=== PATIENT | male | born 1980 | race African-American/Black ===

== ENCOUNTER 2017-06-10 21:09 | Inpatient (IN) | payer OTHER ==
[2017-06-10 21:20] VITALS: BMI 28.1
--- NOTE | 2017-06-11 00:56 | PDOC ---
History of Present Illness - General Chief Complaint: Urinary Problem Stated Complaint: URINARY PROBLEM, THIGH PAIN Time Seen by Provider: 06/11/17 00:53 History Source: Patient Exam Limitations: No Limitations - History of Present Illness Initial Comments: CHIEF COMPLAINT: 36 y/o afebrile male with no significant PMH c/o left thigh pain and dark urine. HISTORY OF PRESENT ILLNESS: The patient states he started having left upper thigh pain that started about 2 weeks ago after playing basketball. He states he thinks it was just a sore muscle, as he plays basketball every day and it's been getting better on it's own. He states this week he started lifting weights , along with playing basketball every day, and today he had iced tea colored urine. He was concerned so he came in. He denies f/c, n/v/d, CP, SOB, cough, hemoptysis, CP, SOB, abd pain, redness/warmth/swelling to LEs, calf pain, recent travel, dysuria, abnormal penile discharge. He also denies steroid use. Vital signs on arrival are within normal limits. REVIEW OF SYSTEMS: GENERAL/CONSTITUTIONAL: No fever/chills. No weakness. No weight change. HEAD, EYES, EARS, NOSE AND THROAT: No change in vision. No ear pain or discharge. No sore throat. CARDIOVASCULAR: No chest pain or shortness of breath. RESPIRATORY: No cough, wheezing, or hemoptysis. GASTROINTESTINAL: No abd pain, nausea, vomiting, diarrhea. GENITOURINARY: +iced tea colored urine. No dysuria, frequency. MUSCULOSKELETAL: +left thigh pain. No calf pain. No neck or back pain. SKIN: No rash or easy bruising. NEUROLOGIC: No headache, vertigo, loss of consciousness, or loss of sensation. PHYSICAL EXAM: GENERAL: The patient is awake, alert, and fully oriented, in no acute distress. He is very well appearing, ambulatory, in good shape, in NAD or obvious discomfort. HEAD: Normal with no signs of trauma. ENT: Pupils equal, round and reactive to light, extraocular movements intact, sclera anicteric, conjunctiva clear. Neck supple. LUNGS: Clear to auscultation bilaterally. Normal excursion. No respiratory distress or use of accessory muscles. CV: RRR, S1/S2, no MRG. Cap refill < 2 sec. ABDOMEN: Soft, non-distended, non-tender even to deep palpation, no hepatomegaly or splenomegaly, no masses. EXTREMITIES: +mild reproducible pain with palpation of left upper medial thigh without obvious deformity. Normal range of motion, no edema. No erythema, edema, warmth to b/l LEs. No calf pain b/l. NEUROLOGICAL: Normal speech, normal gait. CN II-XII grossly intact. PSYCH: Normal mood, normal affect. SKIN: Warm, dry, normal turgor, no rashes or lesions noted. Past History - Past Medical History Allergies/Adverse Reactions: Allergies Allergy/AdvReac Type Severity Reaction Status Date / Time Sulfa (Sulfonamide Allergy Verified 06/11/17 04:38 Antibiotics) Home Medications: Ambulatory Orders NK [No Known Home Medication] 06/11/17 - Psycho/Social/Smoking Cessation Hx Suicidal Ideation: No Smoking History: Never smoked *Physical Exam - Vital Signs Last Vital Signs Temp Pulse Resp BP Pulse Ox 98.9 F 80 18 162/90 97 06/10/17 21:18 06/10/17 21:18 06/10/17 21:18 06/10/17 21:18 06/10/17 21:18 ED Treatment Course - LABORATORY CBC & Chemistry Diagram: 06/11/17 01:20 06/11/17 01:20 Medical Decision Making - Medical Decision Making A/P: 36 y/o male who started lifting weights this week c/o iced tea colored urine today. Will work up to r/o rhabdomyolysis. Plan is as follows: 1. Labs 2. UA AST/ALT elevated CPK - 12,000 UA 3+ blood Patient has 2 bags of IV fluids running at the same time. Will admit to hospitalist for rhabdo Spoke with patient regarding admission. Spoke with resident regarding admission. Will admit to Dr. Choudhury. *DC/Admit/Observation/Transfer Diagnosis at time of Disposition: Rhabdomyolysis Qualifiers: Rhabdomyolysis type: non-traumatic Qualified Code(s): M62.82 - Rhabdomyolysis - Discharge Dispostion Condition at time of disposition: Stable Admit: Yes
--- NOTE | 2017-06-11 01:10 | PDOC ---
*Physical Exam - Vital Signs Last Vital Signs Temp Pulse Resp BP Pulse Ox 98.9 F 80 18 162/90 97 06/10/17 21:18 06/10/17 21:18 06/10/17 21:18 06/10/17 21:18 06/10/17 21:18 ED Treatment Course - LABORATORY CBC & Chemistry Diagram: 06/11/17 06:55 06/11/17 06:55 Medical Decision Making - Medical Decision Making 06/11/17 01:10 agree with care from RICARDA Key 06/11/17 04:49 Pt found to be in Rhabdolmyolysis. Pt will be admitted for IV hydration. *DC/Admit/Observation/Transfer Diagnosis at time of Disposition: Rhabdomyolysis - Discharge Dispostion Condition at time of disposition: Stable
[2017-06-11 01:30] LABS: BASOPHIL 0.7 % (0-2.0); EOSINOPHIL 0.6 % (0-4.5); MCH 28.8 pg (25.7-33.7); MCHC 33.5 g/dl (32.0-35.9); MEAN CELL VOLUME 86.1 fl (80-96); NEUTROPHILS 62.3 % (42.8-82.8); PLATELET COUNT 193 K/MM3 (134-434); RDW 14.4 % (11.9-15.9); WHITE BLOOD COUNT 10.9 K/mm3 (4.0-10.0)
[2017-06-11 01:32] LABS: URINE APPEARANCE CLEAR; URINE BILIRUBIN NEGATIVE (NEGATIVE); URINE BLOOD 3+ (NEGATIVE); URINE COLOR YELLOW; URINE GLUCOSE (UA) NEGATIVE (NEGATIVE); URINE KETONE NEGATIVE (NEGATIVE); URINE LEUK ESTERASE NEGATIVE (NEGATIVE); URINE NITRITE NEGATIVE (NEGATIVE); URINE UROBILINOGEN NEGATIVE mg/dL (0.2-1.0)
[2017-06-11 01:55] LABS: ALBUMIN 4.5 g/dl (3.4-5.0); ANION GAP 8 (8-16); BILIRUBIN,TOTAL 0.7 mg/dL (0.2-1.0); CALCIUM 9.1 mg/dL (8.5-10.1); CO2 29 mmol/L (21-32); GLUCOSE,RANDOM 91 mg/dL (74-106); SGPT/ALT 300 U/L (12-78); TOT PROT 7.8 g/dl (6.4-8.2)
[2017-06-11 02:18] LABS: ALK PHOS 81 U/L (45-117)
[2017-06-11 02:28] LABS: SGOT/AST 888 U/L (15-37)
[2017-06-11 03:29] LABS: URINE PROTEIN 1+ (NEGATIVE)
[2017-06-11] MEDS ORDERED: SODIUM CHLORIDE 1,000 ML IV STA ×2 (03:51→04:46)
[2017-06-11 04:19] LABS: URINE BACTERIA MODERATE /hpf (NONE SEEN); URINE RBC 7 /hpf (0-3); URINE WBC 2 /hpf (3-5)
[2017-06-11] MEDS ORDERED: SODIUM CHLORIDE 1,000 ML IV SCH (06:30)
--- NOTE | 2017-06-11 06:32 | HP ---
CHIEF COMPLAINT: left thigh pain and dark urine. PCP: HISTORY OF PRESENT ILLNESS: 36 y/o AA, athletic male with no significant PMH c/o left thigh pain and dark urine. The patient states he started having left upper thigh pain that started about 2 weeks ago after playing basketball. He states he thinks it was just a sore muscle, as he plays basketball every day and it's been getting better on it 's own. He states this week he started lifting weights, along with playing basketball every day, and today he had iced tea colored urine. He denies f/c, n/v/d, CP, SOB, cough, hemoptysis, CP, SOB, abd pain, redness/warmth/swelling to LEs, calf pain, recent travel, dysuria, abnormal penile discharge. He also denies steroid use. ER course was notable for: (1) EKG : NSR (2)2 IV bolus 1000 NS (3)CMP, CPK Recent Travel:NO PAST MEDICAL HISTORY:Not significant PAST SURGICAL HISTORY:None Social History: Smoking:None Alcohol:Heavy drinker, quit last year Drugs: None Family History:un significant Allergies Sulfa (Sulfonamide Antibiotics) Allergy (Verified 06/11/17 04:38) HOME MEDICATIONS: Home Medications Medication Instructions Recorded Unobtainable [Unobtainable] 06/11/17 Current Medications Generic Name Dose Route Start Last Admin Trade Name Freq PRN Reason Stop Dose Admin Sodium Chloride 1,000 mls @ 200 mls/hr 06/11/17 12:39 06/11/17 18:00 Normal Saline - IV 200 mls/hr ASDIR [facility] Administration REVIEW OF SYSTEMS REVIEW OF SYSTEMS: GENERAL/CONSTITUTIONAL: No fever/chills. No weakness. No weight change. HEAD, EYES, EARS, NOSE AND THROAT: No change in vision. No ear pain or discharge. No sore throat. CARDIOVASCULAR: No chest pain or shortness of breath. RESPIRATORY: No cough, wheezing, or hemoptysis. GASTROINTESTINAL: No abd pain, nausea, vomiting, diarrhea. GENITOURINARY: +iced tea colored urine. No dysuria, frequency. MUSCULOSKELETAL: +left thigh pain. No calf pain. No neck or back pain. SKIN: No rash or easy bruising. NEUROLOGIC: No headache, vertigo, loss of consciousness, or loss of sensation. Vital Signs - 24 hr 06/10/17 06/11/17 06/11/17 21:18 01:05 06:31 Temperature 98.9 F 98 F Pulse Rate 80 Pulse Rate [ 74 Left] Respiratory 18 17 Rate Blood Pressure 162/90 Blood Pressure 138/77 [Left Arm] O2 Sat by Pulse 97 97 96 Oximetry (%) PHYSICAL EXAM: GENERAL: The patient is awake, alert, and fully oriented, in no acute distress. He is very well appearing, ambulatory, in good shape, in NAD or obvious discomfort. HEAD: Normal with no signs of trauma. ENT: Pupils equal, round and reactive to light, extraocular movements intact, sclera anicteric, conjunctiva clear. Neck supple. LUNGS: Clear to auscultation bilaterally. Normal excursion. No respiratory distress or use of accessory muscles. CV: RRR, S1/S2, no MRG. Cap refill < 2 sec. ABDOMEN: Soft, non-distended, non-tender even to deep palpation, no hepatomegaly or splenomegaly, no masses. EXTREMITIES: +mild reproducible pain with palpation of left upper medial thigh without obvious deformity. Normal range of motion, no edema. No erythema, edema, warmth to b/l LEs. No calf pain b/l. NEUROLOGICAL: Normal speech, normal gait. CN II-XII grossly intact. PSYCH: Normal mood, normal affect. SKIN: Warm, dry, normal turgor, no rashes or lesions noted. CBC, BMP 06/11/17 01:20 06/11/17 01:20 CBC,CMP WBC 10.9 K/mm3 (4.0-10.0) H 06/11/17 01:20 RBC 5.01 M/mm3 (4.00-5.60) 06/11/17 01:20 Hgb 14.5 GM/dL (11.7-16.9) 06/11/17 01:20 Hct 43.2 % (35.4-49) 06/11/17 01:20 MCV 86.1 fl (80-96) 06/11/17 01:20 MCH 28.8 pg (25.7-33.7) 06/11/17 01:20 MCHC 33.5 g/dl (32.0-35.9) 06/11/17 01:20 RDW 14.4 % (11.9-15.9) 06/11/17 01:20 Plt Count 193 K/MM3 (134-434) 06/11/17 01:20 MPV 9.0 fl (7.5-11.1) 06/11/17 01:20 Neutrophils % 62.3 % (42.8-82.8) 06/11/17 01:20 Lymphocytes % 29.2 % (8-40) 06/11/17 01:20 Monocytes % 7.2 % (3.8-10.2) 06/11/17 01:20 Eosinophils % 0.6 % (0-4.5) 06/11/17 01:20 Basophils % 0.7 % (0-2.0) 06/11/17 01:20 Sodium 138 mmol/L (136-145) 06/11/17 01:20 Potassium 4.2 mmol/L (3.5-5.1) 06/11/17 01:20 Chloride 101 mmol/L (98-107) 06/11/17 01:20 Carbon Dioxide 29 mmol/L (21-32) 06/11/17 01:20 Anion Gap 8 (8-16) 06/11/17 01:20 BUN 20 mg/dL (7-18) H 06/11/17 01:20 Creatinine 1.0 mg/dL (0.7-1.3) 06/11/17 01:20 Creat Clearance w eGFR > 60 (>60) 06/11/17 01:20 Random Glucose 91 mg/dL (74-106) 06/11/17 01:20 Calcium 9.1 mg/dL (8.5-10.1) 06/11/17 01:20 Total Bilirubin 0.7 mg/dL (0.2-1.0) 06/11/17 01:20 AST 888 U/L (15-37) H 06/11/17 01:20 ALT 300 U/L (12-78) H 06/11/17 01:20 Alkaline Phosphatase 81 U/L (45-117) 06/11/17 01:20 Creatine Kinase 36216 IU/L (39-308) H 06/11/17 01:20 Total Protein 7.8 g/dl (6.4-8.2) 06/11/17 01:20 Albumin 4.5 g/dl (3.4-5.0) 06/11/17 01:20 ASSESSMENT/PLAN: 36 y/o male who started lifting weights this week c/o iced tea colored urine today and mid upper thigh tenderness. he was admitted for rhabdomyolysis. # Rhabdomyolysis likely 2/2 sever exercise vs dehydration * * CBC, CMP * IV fluids: NS 150 CC/Hr * CPK 12.000 , repeat CPK * UA + 3 blood * # Transminitis * AST 888, ALT 300 * Repeat CMP * Liver US * Hep panel * GI consult #F/E/N * NS @ 150 CC/Hr * Electrolytes WNL * N regular diet # proph * DVTs : Low risk, early ambulation # Dispo * Admit to med-surge * Full code Visit type - Emergency Visit Emergency Visit: Yes ED Registration Date: 06/11/17 Care time: The patient presented to the Emergency Department on the above date and was hospitalized for further evaluation of their emergent condition. - New Patient This patient is new to me today: Yes Date on this admission: 06/25/17 - Critical Care Critical Care patient: No
--- NOTE | 2017-06-11 07:03 | PN ---
Teaching Attending Note Name of Resident: Dudley Rosa ATTENDING PHYSICIAN STATEMENT I saw and evaluated the patient. I reviewed the resident's note and discussed the case with the resident. I agree with the resident's findings and plan as documented. SUBJECTIVE: c/o urine color change after excessive exercise. OBJECTIVE: GEN: A&Ox3, NAD, afebrile HEENT: anicteric sclera, PERRLA, MMM CVS: RRR, S1, S2 ABd: Soft ,NT, ND, BS+ Ext: 2+ pulses, nl ROM, no edema Neuro: CN2-12 intact , normal sensation CBCD WBC 10.9 K/mm3 (4.0-10.0) H 06/11/17 01:20 RBC 5.01 M/mm3 (4.00-5.60) 06/11/17 01:20 Hgb 14.5 GM/dL (11.7-16.9) 06/11/17 01:20 Hct 43.2 % (35.4-49) 06/11/17 01:20 MCV 86.1 fl (80-96) 06/11/17 01:20 MCHC 33.5 g/dl (32.0-35.9) 06/11/17 01:20 RDW 14.4 % (11.9-15.9) 06/11/17 01:20 Plt Count 193 K/MM3 (134-434) 06/11/17 01:20 MPV 9.0 fl (7.5-11.1) 06/11/17 01:20 CMP Sodium 138 mmol/L (136-145) 06/11/17 01:20 Potassium 4.2 mmol/L (3.5-5.1) 06/11/17 01:20 Chloride 101 mmol/L (98-107) 06/11/17 01:20 Carbon Dioxide 29 mmol/L (21-32) 06/11/17 01:20 Anion Gap 8 (8-16) 06/11/17 01:20 BUN 20 mg/dL (7-18) H 06/11/17 01:20 Creatinine 1.0 mg/dL (0.7-1.3) 06/11/17 01:20 Creat Clearance w eGFR > 60 (>60) 06/11/17 01:20 Calcium 9.1 mg/dL (8.5-10.1) 06/11/17 01:20 Total Bilirubin 0.7 mg/dL (0.2-1.0) 06/11/17 01:20 AST 888 U/L (15-37) H 06/11/17 01:20 ALT 300 U/L (12-78) H 06/11/17 01:20 Alkaline Phosphatase 81 U/L (45-117) 06/11/17 01:20 Total Protein 7.8 g/dl (6.4-8.2) 06/11/17 01:20 Albumin 4.5 g/dl (3.4-5.0) 06/11/17 01:20 ASSESSMENT AND PLAN: Rhabdomyolysis- IVF NS 150 cc/h Repeat BMP and CK Elevated LFTs USG and hepatitis panel consider GI consult
[2017-06-11 07:15] LABS: MCHC 33.7 g/dl (32.0-35.9); MEAN CELL VOLUME 85.9 fl (80-96); MEAN PLT VOLUME 8.8 fl (7.5-11.1); PLATELET COUNT 176 K/MM3 (134-434); WHITE BLOOD COUNT 8.8 K/mm3 (4.0-10.0)
[2017-06-11 07:42] LABS: ALBUMIN 3.6 g/dl (3.4-5.0); ALK PHOS 65 U/L (45-117); ANION GAP 8 (8-16); BILIRUBIN,TOTAL 0.9 mg/dL (0.2-1.0); CALCIUM 8.1 mg/dL (8.5-10.1); CO2 27 mmol/L (21-32); CREATININE 0.9 mg/dL (0.7-1.3); GLUCOSE,RANDOM 89 mg/dL (74-106); SGPT/ALT 247 U/L (12-78); TOT PROT 6.2 g/dl (6.4-8.2)
[2017-06-11 07:48] LABS: SGOT/AST 718 U/L (15-37)
[2017-06-11 08:46] LABS: CK INDEX FOR DOBBS 1.3 % (0.0-5.0)
--- NOTE | 2017-06-11 11:18 | CON.GI ---
Consult Consult Specialty:: GI: for Dr. Serrano Referred by:: Hospitalist Service Reason for Consultation:: Elevated Transaminases - History of Present Illness Chief Complaint: "My left thigh was hurting" History of Present Illness: 36M admitted through [facility] ER for left thigh pain. 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 The pain persisted, got worse and he began noticing dark urine. He became concerned, particularly when a [employer] newsfeed popped up on his phone about rhabdomyolysis, and though that that is what could be going on. In the ER triage vitals appeared stable, he had a m,il;d leukocytosis, elevated transamniases and CPK, with 3+ blood and 7 RBC's in UA and CPK 12,187 . He was admitted for treatment of rhabdomyloysis and GI called given elevated transaminases. He denies abdominal symptomatology. He denies recent travel, change in dietary habits, tattos, IVDU, history of blood transfusions, known personal or family history of liver disease/ autoimmune disease, known exposure to viral hepatitides. He is not sexually active and denies sex with prostitutes. He does give a history of moderate to heavy alcohol consumption that was stopped in March of last year. He states having a "couple of drinks with friends" this past April. 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 No family history of liver disease / GI malignancy Review of Systems - Review of Systems Constitutional: denies: Chills, Fever, Unintentional Wgt. Loss Cardiovascular: denies: Chest Pain Respiratory: denies: SOB Gastrointestinal: reports: No Symptoms, Indigestion, Melena, Nausea, Rectal Bleeding, Vomiting, Vomiting Blood. denies: Abdominal Pain, Bloating, Constipation, Diarrhea, Dysphagia Genitourinary: reports: Other (Dark urine) Musculoskeletal: reports: Muscle Pain (Left thigh) Hematology/Lymphatic: denies: Easily Bruised Physical Exam-GI Vital Signs: Vital Signs Temperature 98.4 F 06/11/17 09:54 Pulse Rate 65 06/11/17 09:54 Respiratory Rate 20 06/11/17 09:54 Blood Pressure 127/62 06/11/17 09:54 O2 Sat by Pulse Oximetry (%) 96 06/11/17 09:54 Constitutional: Yes: Calm Eyes: No: Sclera Icterus Cardiovascular: Yes: Regular Rate and Rhythm. No: Murmur Respiratory: Yes: CTA Bilaterally Gastrointestinal Inspection: No: Hernia, Scars ...Auscultate: Yes: Normoactive Bowel Sounds ...Palpate: No: Hepatomegaly, Splenomegaly, Tenderness ...Percussion: No: Tympanitic Edema: No (No LE Edema) Neurological: Yes: Alert, Oriented Labs: CBC, BMP 06/11/17 06:55 06/11/17 06:55 Laboratory Tests 06/11/17 06/11/17 01:20 06:55 Total Bilirubin 0.7 0.9 D AST 888 H 718 H ALT 300 H 247 H Alkaline Phosphatase 81 65 Creatine Kinase 49973 H Imaging - Results Ultrasound: Report Reviewed (Mild hepatomegaly, small (3mm gall bladder polyps) , No stones/sludge) Problem List - Problems (1) Transaminitis Assessment/Plan: Suspect not from primary liver pathology and rather from rhabdomyolysis. LFT's in normalizing trend. Monitor LFTs Avoid hepatotoxic agents Check screening hepatitis serologies: Hepatitis A antibody IgM/IgG, Hepatitis B surface antigen, Hepatitis B surface antibody, hepatitis B core IgM, Hepatitis C antiobody Advised Mr. Martin to completely avoid alcohol given prior history of heavy alcohol consumption Recall as needed Code(s): R74.0 - NONSPEC ELEV OF LEVELS OF TRANSAMNS & LACTIC ACID DEHYDRGNSE (2) Polyp of gallbladder Assessment/Plan: Multiple, subcentimeter and not associated with gallstones. Not impacting current hoispitalization Would observe. Should have follow-up US in 6 months to assess stability. Can offer follow-up with Dr. Serrano in office (contact information placed in discharge summary) Code(s): K82.4 - CHOLESTEROLOSIS OF GALLBLADDER
--- NOTE | 2017-06-11 11:51 | EKG ---
Test Reason : Blood Pressure : / mmHG Vent. Rate : 065 BPM Atrial Rate : 065 BPM P-R Int : 168 ms QRS Dur : 114 ms QT Int : 426 ms P-R-T Axes : 059 059 007 degrees QTc Int : 443 ms NORMAL SINUS RHYTHM POSSIBLE LEFT ATRIAL ENLARGEMENT NONSPECIFIC T WAVE ABNORMALITY ABNORMAL ECG NO PREVIOUS ECGS AVAILABLE Confirmed by CRISTINA RICHARDSON MD ([id number]) on 06/11/2017 11:51:15 AM Referred By: Confirmed By:CRISTINA RICHARDSON MD
[2017-06-11] MEDS: SODIUM CHLORIDE 1,000 ML IV SCH ×3 (12:51→23:15)
[2017-06-12] MEDS: SODIUM CHLORIDE 1,000 ML IV SCH ×4 (05:57→22:00)
[2017-06-12 06:10] LABS: HEP B SURFACE AB Reactive (.)
[2017-06-12 09:14] LABS: BASOPHIL 0.4 % (0-2.0); EOSINOPHIL 1.8 % (0-4.5); MCH 28.9 pg (25.7-33.7); MCHC 33.7 g/dl (32.0-35.9); MEAN CELL VOLUME 85.8 fl (80-96); MEAN PLT VOLUME 9.5 fl (7.5-11.1); NEUTROPHILS 50.9 % (42.8-82.8); PLATELET COUNT 169 K/MM3 (134-434); RDW 14.3 % (11.9-15.9); WHITE BLOOD COUNT 6.3 K/mm3 (4.0-10.0)
--- NOTE | 2017-06-12 10:28 | PN ---
Progress Note (short form) - Note Progress Note: Subjective: The patient was seen and examined at the bedside, he states he is feeling good. Urine at bedside clear-yellow. Awaiting CPK level to determine Current Medications Generic Name Dose Route Start Last Admin Trade Name Amari PRN Reason Stop Dose Admin Sodium Chloride 1,000 mls @ 200 mls/hr 06/11/17 12:39 06/12/17 05:57 Normal Saline - IV 200 mls/hr ASDIR SHAHIDA Administration Objective: Vital Signs Period Temp Pulse Resp BP Sys/Gleason Pulse Ox Last 24 Hr 98.0 F-98.3 F 54-67 17-20 129-134/63-73 Physical Exam: General: NAD, A&OX3 Lungs: CTA bilaterally Heart: RRR, S1S2 Abd: Soft, non-tender, non-distended. Normoactive bowel sounds Ext: Warm, well-perfused. 2+ DP/PT bilaterally Neuro: CN 2-12 intact CBCD WBC 6.3 K/mm3 (4.0-10.0) 06/12/17 07:00 RBC 4.13 M/mm3 (4.00-5.60) 06/12/17 07:00 Hgb 11.9 GM/dL (11.7-16.9) 06/12/17 07:00 Hct 35.4 % (35.4-49) 06/12/17 07:00 MCV 85.8 fl (80-96) 06/12/17 07:00 MCHC 33.7 g/dl (32.0-35.9) 06/12/17 07:00 RDW 14.3 % (11.9-15.9) 06/12/17 07:00 Plt Count 169 K/MM3 (134-434) 06/12/17 07:00 MPV 9.5 fl (7.5-11.1) 06/12/17 07:00 CMP Sodium 141 mmol/L (136-145) 06/11/17 06:55 Potassium 4.1 mmol/L (3.5-5.1) 06/11/17 06:55 Chloride 106 mmol/L (98-107) 06/11/17 06:55 Carbon Dioxide 27 mmol/L (21-32) 06/11/17 06:55 Anion Gap 8 (8-16) 06/11/17 06:55 BUN 17 mg/dL (7-18) 06/11/17 06:55 Creatinine 0.9 mg/dL (0.7-1.3) 06/11/17 06:55 Creat Clearance w eGFR > 60 (>60) 06/11/17 06:55 Random Glucose 89 mg/dL (74-106) 06/11/17 06:55 Calcium 8.1 mg/dL (8.5-10.1) L 06/11/17 06:55 Total Bilirubin 0.9 mg/dL (0.2-1.0) D 06/11/17 06:55 AST 718 U/L (15-37) H 06/11/17 06:55 ALT 247 U/L (12-78) H 06/11/17 06:55 Alkaline Phosphatase 65 U/L (45-117) 06/11/17 06:55 Total Protein 6.2 g/dl (6.4-8.2) L D 06/11/17 06:55 Albumin 3.6 g/dl (3.4-5.0) 06/11/17 06:55 CARDIAC ENZYMES Creatine Kinase 10437 IU/L (39-308) H 06/11/17 01:20 This is a 36 year old male with no significant PMHx who presented to the ED with rhabdomyolysis. Plan: 1) MSK: Rhabdomyolysis - Continue IV fluids at current rate - F/u AM CPK level and adjust IV fluids appropriately - Continue to monitor kidney function 2) GI: Transaminitis - May be 2/2 rhabdo - F/u hepatitis panel - Continue to trend - Avoid hepatotoxic agents Polyp of gallbladder - Will need follow-up ultrasound in 6 months 3) F/E/N: - Monitor electrolytes - Regular diet 4) Prophylaxis: - OOB ambulating - SCDs bilaterally 5) Dispo: - Once condition improves CODE STATUS: FULL CODE Problem List - Problems (1) Rhabdomyolysis Code(s): M62.82 - RHABDOMYOLYSIS Qualifiers: Rhabdomyolysis type: non-traumatic Qualified Code(s): M62.82 - Rhabdomyolysis (2) Transaminitis Code(s): R74.0 - NONSPEC ELEV OF LEVELS OF TRANSAMNS & LACTIC ACID DEHYDRGNSE Visit type - Emergency Visit Emergency Visit: Yes ED Registration Date: 06/11/17 Care time: The patient presented to the Emergency Department on the above date and was hospitalized for further evaluation of their emergent condition. - New Patient This patient is new to me today: Yes Date on this admission: 06/12/17 - Critical Care Critical Care patient: No
[2017-06-12 12:04] LABS: ALBUMIN 3.6 g/dl (3.4-5.0); ANION GAP 5 (8-16); BILIRUBIN,TOTAL 0.6 mg/dL (0.2-1.0); CALCIUM 8.9 mg/dL (8.5-10.1); CO2 30 mmol/L (21-32); CREATININE 0.8 mg/dL (0.7-1.3); GLUCOSE,RANDOM 75 mg/dL (74-106); SGPT/ALT 301 U/L (12-78); TOT PROT 6.5 g/dl (6.4-8.2)
[2017-06-12 12:28] LABS: ALK PHOS 68 U/L (45-117)
[2017-06-12 12:30] LABS: SGOT/AST 711 U/L (15-37)
[2017-06-12] MEDS ORDERED: SODIUM CHLORIDE 1,000 ML IV ONE (19:45)
[2017-06-13] MEDS: SODIUM CHLORIDE 1,000 ML IV SCH (03:15)
[2017-06-13 09:19] LABS: CPK 26894 IU/L (39-308)
[2017-06-13] MEDS ORDERED: SODIUM CHLORIDE 1,000 ML IV STA (10:00)
[2017-06-13 10:03] LABS: ALBUMIN 3.2 g/dl (3.4-5.0); ANION GAP 8 (8-16); BILIRUBIN,TOTAL 0.4 mg/dL (0.2-1.0); CALCIUM 8.2 mg/dL (8.5-10.1); CO2 26 mmol/L (21-32); CREATININE 0.9 mg/dL (0.7-1.3); GLUCOSE,RANDOM 97 mg/dL (74-106); SGPT/ALT 291 U/L (12-78)
[2017-06-13 10:04] LABS: ALK PHOS 65 U/L (45-117)
[2017-06-13 10:05] LABS: SGOT/AST 596 U/L (15-37)
--- NOTE | 2017-06-13 10:05 | PN ---
Progress Note (short form) - Note Progress Note: Subjective: The patient was seen and examined at the bedside, he states he is feeling good. CPK peaked at 40,000, trending down today to 26,800 Current Medications Generic Name Dose Route Start Last Admin Trade Name Amari PRN Reason Stop Dose Admin Sodium Chloride 1,000 mls @ 200 mls/hr 06/12/17 19:45 06/13/17 03:15 Normal Saline - IV 200 mls/hr ASDIR SHAHIDA Administration Sodium Chloride 1,000 mls @ 500 mls/hr 06/13/17 10:00 Normal Saline - IV 06/13/17 11:59 ASDIR STA Objective: Vital Signs Period Temp Pulse Resp BP Sys/Gleason Pulse Ox Last 24 Hr 98 F-98.1 F 49-58 16-20 132-149/75-85 100 Physical Exam: General: NAD, A&OX3 Lungs: CTA bilaterally Heart: RRR, S1S2 Abd: Soft, non-tender, non-distended. Normoactive bowel sounds Ext: Warm, well-perfused. 2+ DP/PT bilaterally Neuro: CN 2-12 intact CBCD WBC 6.3 K/mm3 (4.0-10.0) 06/12/17 07:00 RBC 4.13 M/mm3 (4.00-5.60) 06/12/17 07:00 Hgb 11.9 GM/dL (11.7-16.9) 06/12/17 07:00 Hct 35.4 % (35.4-49) 06/12/17 07:00 MCV 85.8 fl (80-96) 06/12/17 07:00 MCHC 33.7 g/dl (32.0-35.9) 06/12/17 07:00 RDW 14.3 % (11.9-15.9) 06/12/17 07:00 Plt Count 169 K/MM3 (134-434) 06/12/17 07:00 MPV 9.5 fl (7.5-11.1) 06/12/17 07:00 CMP Sodium 141 mmol/L (136-145) 06/12/17 07:00 Potassium 3.9 mmol/L (3.5-5.1) 06/12/17 07:00 Chloride 106 mmol/L (98-107) 06/12/17 07:00 Carbon Dioxide 30 mmol/L (21-32) 06/12/17 07:00 Anion Gap 5 (8-16) L 06/12/17 07:00 BUN 7 mg/dL (7-18) D 06/12/17 07:00 Creatinine 0.8 mg/dL (0.7-1.3) 06/12/17 07:00 Creat Clearance w eGFR > 60 (>60) 06/12/17 07:00 Random Glucose 75 mg/dL (74-106) 06/12/17 07:00 Calcium 8.9 mg/dL (8.5-10.1) 06/12/17 07:00 Total Bilirubin 0.6 mg/dL (0.2-1.0) D 06/12/17 07:00 AST 711 U/L (15-37) H 06/12/17 07:00 ALT 301 U/L (12-78) H D 06/12/17 07:00 Alkaline Phosphatase 68 U/L (45-117) 06/12/17 07:00 Total Protein 6.5 g/dl (6.4-8.2) 06/12/17 07:00 Albumin 3.6 g/dl (3.4-5.0) 06/12/17 07:00 CARDIAC ENZYMES Creatine Kinase 69572 IU/L (39-308) H 06/13/17 06:00 This is a 36 year old male with no significant PMHx who presented to the ED with rhabdomyolysis. Plan: 1) MSK: Rhabdomyolysis - Will give IVF bolus - Continue IV fluids at current rate - Continue to monitor kidney function 2) GI: Transaminitis - May be 2/2 rhabdo - Hepatitis panel reviewed - Continue to trend - Avoid hepatotoxic agents Polyp of gallbladder - Will need follow-up ultrasound in 6 months 3) F/E/N: - Monitor electrolytes - Regular diet 4) Prophylaxis: - OOB ambulating - SCDs bilaterally 5) Dispo: - Once condition improves CODE STATUS: FULL CODE Problem List - Problems (1) Rhabdomyolysis Code(s): M62.82 - RHABDOMYOLYSIS Qualifiers: Rhabdomyolysis type: non-traumatic Qualified Code(s): M62.82 - Rhabdomyolysis (2) Transaminitis Code(s): R74.0 - NONSPEC ELEV OF LEVELS OF TRANSAMNS & LACTIC ACID DEHYDRGNSE Visit type - Emergency Visit Emergency Visit: Yes ED Registration Date: 06/11/17 Care time: The patient presented to the Emergency Department on the above date and was hospitalized for further evaluation of their emergent condition. - New Patient This patient is new to me today: No - Critical Care Critical Care patient: No
[2017-06-13] MEDS ORDERED: SODIUM CHLORIDE 250 ML IV STA (18:40)
[2017-06-14] MEDS: SODIUM CHLORIDE 1,000 ML IV SCH ×4 (05:52→21:21)
[2017-06-14 08:36] LABS: ALBUMIN 3.1 g/dl (3.4-5.0); ANION GAP 6 (8-16); CALCIUM 8.2 mg/dL (8.5-10.1); CO2 28 mmol/L (21-32); CREATININE 0.9 mg/dL (0.7-1.3); GLUCOSE,RANDOM 73 mg/dL (74-106); SGPT/ALT 279 U/L (12-78)
[2017-06-14 08:37] LABS: SGOT/AST 487 U/L (15-37)
[2017-06-14 09:01] LABS: ALK PHOS 60 U/L (45-117); BILIRUBIN,TOTAL 0.7 mg/dL (0.2-1.0); TOT PROT 5.6 g/dl (6.4-8.2); TROPONIN I 0.06 ng/ml (0.00-0.05)
[2017-06-14 09:52] LABS: CPK 19935 IU/L (39-308)
--- NOTE | 2017-06-14 13:05 | PN ---
Progress Note (short form) - Note Progress Note: Subjective: The patient was seen and examined at the bedside, he states he is feeling good. Troponin ordered by lab, 0.06 patient denies any chest pain EKG unchanged from admission, sinus bradycardia Current Medications Generic Name Dose Route Start Last Admin Trade Name Amari PRN Reason Stop Dose Admin Sodium Chloride 1,000 mls @ 200 mls/hr 06/12/17 19:45 06/14/17 11:09 Normal Saline - IV 200 mls/hr ASDIR SHAHIDA Administration Objective: Vital Signs Period Temp Pulse Resp BP Sys/Gleason Pulse Ox Last 24 Hr 98.1 F-98.6 F 55-61 16-20 124-142/70-79 100 Physical Exam: General: NAD, A&OX3 Lungs: CTA bilaterally Heart: RRR, S1S2 Abd: Soft, non-tender, non-distended. Normoactive bowel sounds Ext: Warm, well-perfused. 2+ DP/PT bilaterally Neuro: CN 2-12 intact CBCD WBC 6.3 K/mm3 (4.0-10.0) 06/12/17 07:00 RBC 4.13 M/mm3 (4.00-5.60) 06/12/17 07:00 Hgb 11.9 GM/dL (11.7-16.9) 06/12/17 07:00 Hct 35.4 % (35.4-49) 06/12/17 07:00 MCV 85.8 fl (80-96) 06/12/17 07:00 MCHC 33.7 g/dl (32.0-35.9) 06/12/17 07:00 RDW 14.3 % (11.9-15.9) 06/12/17 07:00 Plt Count 169 K/MM3 (134-434) 06/12/17 07:00 MPV 9.5 fl (7.5-11.1) 06/12/17 07:00 CMP Sodium 142 mmol/L (136-145) 06/14/17 06:30 Potassium 4.2 mmol/L (3.5-5.1) 06/14/17 06:30 Chloride 108 mmol/L (98-107) H 06/14/17 06:30 Carbon Dioxide 28 mmol/L (21-32) 06/14/17 06:30 Anion Gap 6 (8-16) L 06/14/17 06:30 BUN 9 mg/dL (7-18) D 06/14/17 06:30 Creatinine 0.9 mg/dL (0.7-1.3) 06/14/17 06:30 Creat Clearance w eGFR > 60 (>60) 06/14/17 06:30 Random Glucose 73 mg/dL (74-106) L D 06/14/17 06:30 Calcium 8.2 mg/dL (8.5-10.1) L 06/14/17 06:30 Total Bilirubin 0.7 mg/dL (0.2-1.0) D 06/14/17 06:30 AST 487 U/L (15-37) H 06/14/17 06:30 ALT 279 U/L (12-78) H 06/14/17 06:30 Alkaline Phosphatase 60 U/L (45-117) 06/14/17 06:30 Total Protein 5.6 g/dl (6.4-8.2) L 06/14/17 06:30 Albumin 3.1 g/dl (3.4-5.0) L 06/14/17 06:30 CARDIAC ENZYMES Creatine Kinase 24228 IU/L (39-308) H 06/14/17 06:30 Troponin I 0.06 ng/ml (0.00-0.05) H 06/14/17 06:30 Microbiology 06/11/17 01:20 Urine - Urine Clean Catch Urine Culture - Final NO GROWTH OBTAINED This is a 36 year old male with no significant PMHx who presented to the ED with rhabdomyolysis. Plan: 1) MSK: Rhabdomyolysis - Continue IV fluids at current rate - Continue to monitor kidney function 2) GI: Transaminitis - May be 2/2 rhabdo - Improving - Hepatitis panel reviewed - Avoid hepatotoxic agents Polyp of gallbladder - Will need follow-up ultrasound in 6 months 3) Cardiology: Elevated troponin - Patient denies chest pain, no evidence of ACS - Trend troponins - F/u cardiology consult 4) F/E/N: - Monitor electrolytes - Regular diet 5) Prophylaxis: - OOB ambulating - SCDs bilaterally 6) Dispo: - Once condition improves CODE STATUS: FULL CODE Problem List - Problems (1) Rhabdomyolysis Code(s): M62.82 - RHABDOMYOLYSIS Qualifiers: Rhabdomyolysis type: non-traumatic Qualified Code(s): M62.82 - Rhabdomyolysis (2) Transaminitis Code(s): R74.0 - NONSPEC ELEV OF LEVELS OF TRANSAMNS & LACTIC ACID DEHYDRGNSE Visit type - Emergency Visit Emergency Visit: Yes ED Registration Date: 06/11/17 Care time: The patient presented to the Emergency Department on the above date and was hospitalized for further evaluation of their emergent condition. - New Patient This patient is new to me today: No - Critical Care Critical Care patient: No
[2017-06-14 15:48] LABS: TROPONIN I 0.05 ng/ml (0.00-0.05)
--- NOTE | 2017-06-14 16:20 | EKG ---
Test Reason : Blood Pressure : / mmHG Vent. Rate : 051 BPM Atrial Rate : 051 BPM P-R Int : 180 ms QRS Dur : 112 ms QT Int : 416 ms P-R-T Axes : 054 064 -01 degrees QTc Int : 383 ms SINUS BRADYCARDIA NONSPECIFIC T WAVE ABNORMALITY ABNORMAL ECG WHEN COMPARED WITH ECG OF 11-JUN-2017 06:28, T WAVES ARE UPRIGHT IN V2-V4 QT HAS SHORTENED CORRELATE CLINICALLY. Confirmed by SHEIKH ALISSA, LUIS ([id number] on 06/14/2017 4:19:59 PM Referred By: Jaqueline SMITH Confirmed By:LUIS SUÁREZ MD
--- NOTE | 2017-06-15 08:58 | CON.CARD ---
Consult Consult Specialty:: cardio Referred by:: hospitalist Reason for Consultation:: troponin - History of Present Illness Chief Complaint: thigh pain History of Present Illness: 36 yo male admitted several days ago with rhabdomyolysis and unilateral thigh pain. also noted iced tea colored urine. occurred after routine basketball game as well as he had started new weight lifting regimen. LFTs elevated--seen by GI, who felt this was sec to rhabdo and they were improving. pt denies any drugs including cocaine, and denies etoh abuse. medical team is following serial CPKs and troponin was added by lab which was 0.06, hence we were called. 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 - Alcohol/Substance Use Hx Alcohol Use: No (None currently, See HPI) History of Substance Use: reports: None - Smoking History Smoking history: Never smoked - Social History Usual Living Arrangement: Alone 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 No family history of liver disease / GI malignancy Review of Systems - Review of Systems Constitutional: denies: Chills, Fever Eyes: denies: Eye Pain HENT: denies: Nasal Congestion Neck: denies: Stiffness Cardiovascular: denies: Palpitations Respiratory: denies: Orthopnea, PND Gastrointestinal: denies: Diarrhea, Rectal Bleeding Genitourinary: denies: Burning, Hematuria Musculoskeletal: reports: Muscle Pain. denies: Joint Swelling Integumentary: denies: Rash Neurological: denies: Numbness, Seizure, Syncope Endocrine: denies: Excessive Sweating Hematology/Lymphatic: denies: Excessive Bleeding Vital Signs: Vital Signs Temperature 98.1 F 06/15/17 08:42 Pulse Rate 68 06/15/17 08:42 Respiratory Rate 18 06/15/17 08:42 Blood Pressure 138/81 06/15/17 08:42 O2 Sat by Pulse Oximetry (%) 100 06/13/17 21:00 Constitutional: Yes: Well Nourished, No Distress Eyes: No: Sclera Icterus HENT: No: Nasal Congestion Neck: No: Decreased ROM Respiratory: Yes: CTA Bilaterally. No: Accessory Muscle Use Gastrointestinal: Yes: Normal Bowel Sounds. No: Distention, Hepatomegaly, Palpable Mass, Tenderness Cardiovascular: Yes: Regular Rate and Rhythm JVD: No Carotid Bruit: No PMI: Non-Displaced Heart Sounds: Yes: S1, S2. No: Gallop Murmur: No: Systolic Murmur, Diastolic Murmur Musculoskeletal: Yes: Other (No kyphosis) Extremities: No: Cool, Cyanosis Edema: No Peripheral Pulses: 2+ Left Carotid, 2+ Right Carotid, 2+ Left Doralis Pedis, 2+ Right Dorsalis Pedis Integumentary: No: Jaundice Neurological: Yes: Alert, Oriented (x3) Psychiatric: No: Agitated - Other Data Labs, Other Data: CBC, BMP 06/12/17 07:00 06/14/17 06:30 Troponin, BNP 06/14/17 06/14/17 06/14/17 06:30 14:50 21:15 Troponin I 0.06 H 0.05 0.05 Troponin, BNP 06/14/17 06/14/17 06/14/17 06:30 14:50 21:15 Troponin I 0.06 H 0.05 0.05 Laboratory Tests 06/12/17 06/12/17 06/14/17 07:00 07:00 06:30 WBC 6.3 Hgb 11.9 Plt Count 169 Sodium 142 Potassium 4.2 Carbon Dioxide 28 BUN 9 D Creatinine 0.9 Creatine Kinase 53103 H D Troponin I 0.06 H 07/30/17 07/30/17 07/31/17 14:50 21:15 05:55 WBC Hgb Plt Count Sodium Potassium Carbon Dioxide BUN Creatinine Creatine Kinase 15504 H Troponin I 0.05 0.05 Assessment/Plan ECG #1: NSR, normal axis/intervals; nonsp TWA/TWI anterior > inferior leads (no old) #2: NSR, anterior TWAs less prominent rhabdo: -CPK peaked at 40K-->trending down -etiology of rhabdo is not clear to me--i.e. not clear to me there was any unusually excessive exercise per his usual routine -check TSH and urine for drugs (cocaine) though pt denies drug use -rec reconcile home meds list if he is on anything, by contacting PMD or pharmacy if pt not aware of names--if he is taking a statin for primary prevention i would strongly recommend this is an indication to stop statin for the foreseeable future, if not permanently HTN: -sbp at times 140s here -no indication for meds at present elevated AST/LT: -per GI, sec to rhabdo -were very hi initially (to 800s)--trending down elevated troponin: -trop of 0.06 is not pathological in and of itself; it is c/w myocardial injury if the proper clinical picture is present, which it is not in this case; -the flat trend in troponins confirms on ACS here -no further w/u indicated and would not trend troponin values any longer abnormal ecg: -no priors to compare -nonspecific changes present--r/o (apical?) HCM -check echo -in absence of s/sx of acute myocardial injury, or signif risk factor burden, no indication for stress testing here Addendum: upon completing the consultation, pt informed me he saw Dr. Ovalle 7-8 yrs ago for pre-sports physical, and w/u including echo was unrevealing. i have advised dr ovalle pt is here and if echo shows any abnormality, they will follow after today. also d/w'd hospitalist (elif) who is aware of this plan
[2017-06-15 10:48] LABS: THYROID STIMULATING HORMONE 0.89 uIU/ml (0.358-3.74)
--- NOTE | 2017-06-15 16:03 | PN ---
Progress Note (short form) - Note Progress Note: Subjective: The patient was seen and examined at the bedside, he states he is feeling good. F/u ECHO Current Medications Generic Name Dose Route Start Last Admin Trade Name Amari PRN Reason Stop Dose Admin Sodium Chloride 1,000 mls @ 150 mls/hr 06/15/17 14:44 Normal Saline - IV ASDIR SHAHIDA Objective: Vital Signs Period Temp Pulse Resp BP Sys/Gleason Pulse Ox Last 24 Hr 97.3 F-98.3 F 50-68 16-20 138-148/74-90 100 Physical Exam: General: NAD, A&OX3 Lungs: CTA bilaterally Heart: RRR, S1S2 Abd: Soft, non-tender, non-distended. Normoactive bowel sounds Ext: Warm, well-perfused. 2+ DP/PT bilaterally Neuro: CN 2-12 intact CBCD WBC 6.3 K/mm3 (4.0-10.0) 06/12/17 07:00 RBC 4.13 M/mm3 (4.00-5.60) 06/12/17 07:00 Hgb 11.9 GM/dL (11.7-16.9) 06/12/17 07:00 Hct 35.4 % (35.4-49) 06/12/17 07:00 MCV 85.8 fl (80-96) 06/12/17 07:00 MCHC 33.7 g/dl (32.0-35.9) 06/12/17 07:00 RDW 14.3 % (11.9-15.9) 06/12/17 07:00 Plt Count 169 K/MM3 (134-434) 06/12/17 07:00 MPV 9.5 fl (7.5-11.1) 06/12/17 07:00 CMP Sodium 142 mmol/L (136-145) 06/14/17 06:30 Potassium 4.2 mmol/L (3.5-5.1) 06/14/17 06:30 Chloride 108 mmol/L (98-107) H 06/14/17 06:30 Carbon Dioxide 28 mmol/L (21-32) 06/14/17 06:30 Anion Gap 6 (8-16) L 06/14/17 06:30 BUN 9 mg/dL (7-18) D 06/14/17 06:30 Creatinine 0.9 mg/dL (0.7-1.3) 06/14/17 06:30 Creat Clearance w eGFR > 60 (>60) 06/14/17 06:30 Random Glucose 73 mg/dL (74-106) L D 06/14/17 06:30 Calcium 8.2 mg/dL (8.5-10.1) L 06/14/17 06:30 Total Bilirubin 0.7 mg/dL (0.2-1.0) D 06/14/17 06:30 AST 487 U/L (15-37) H 06/14/17 06:30 ALT 279 U/L (12-78) H 06/14/17 06:30 Alkaline Phosphatase 60 U/L (45-117) 06/14/17 06:30 Total Protein 5.6 g/dl (6.4-8.2) L 06/14/17 06:30 Albumin 3.1 g/dl (3.4-5.0) L 06/14/17 06:30 CARDIAC ENZYMES Creatine Kinase 56569 IU/L (39-308) H 06/15/17 05:55 Troponin I 0.05 ng/ml (0.00-0.05) 06/14/17 21:15 Microbiology 06/11/17 01:20 Urine - Urine Clean Catch Urine Culture - Final NO GROWTH OBTAINED This is a 36 year old male with no significant PMHx who presented to the ED with rhabdomyolysis. Plan: 1) MSK: Rhabdomyolysis - Improving - Continue IV fluids at current rate - Continue to monitor kidney function 2) GI: Transaminitis - May be 2/2 rhabdo - Improving - Hepatitis panel reviewed - Avoid hepatotoxic agents Polyp of gallbladder - Will need follow-up ultrasound in 6 months 3) Cardiology: Elevated troponin - EKG unchanged from previous - Trops flat 0.05 - Appreciate cardiology consult 4) F/E/N: - Monitor electrolytes - Regular diet 5) Prophylaxis: - OOB ambulating - SCDs bilaterally 6) Dispo: - Once condition improves CODE STATUS: FULL CODE Problem List - Problems (1) Rhabdomyolysis Code(s): M62.82 - RHABDOMYOLYSIS Qualifiers: Rhabdomyolysis type: non-traumatic Qualified Code(s): M62.82 - Rhabdomyolysis (2) Transaminitis Code(s): R74.0 - NONSPEC ELEV OF LEVELS OF TRANSAMNS & LACTIC ACID DEHYDRGNSE Visit type - Emergency Visit Emergency Visit: Yes ED Registration Date: 06/11/17 Care time: The patient presented to the Emergency Department on the above date and was hospitalized for further evaluation of their emergent condition. - New Patient This patient is new to me today: No - Critical Care Critical Care patient: No
[2017-06-15] MEDS: SODIUM CHLORIDE 1,000 ML IV SCH (20:00)
[2017-06-16] MEDS: SODIUM CHLORIDE 1,000 ML IV SCH ×4 (02:39→23:00)
[2017-06-16 07:54] LABS: ALBUMIN 3.1 g/dl (3.4-5.0); ANION GAP 6 (8-16); CALCIUM 8.7 mg/dL (8.5-10.1); CO2 29 mmol/L (21-32); GLUCOSE,RANDOM 77 mg/dL (74-106)
[2017-06-16 08:11] LABS: ALK PHOS 55 U/L (45-117); BILIRUBIN,TOTAL 0.5 mg/dL (0.2-1.0); CREATININE 0.8 mg/dL (0.7-1.3); SGOT/AST 209 U/L (15-37); SGPT/ALT 206 U/L (12-78); TOT PROT 5.6 g/dl (6.4-8.2)
[2017-06-16 08:17] LABS: CPK 5797 IU/L (39-308)
--- NOTE | 2017-06-16 10:18 | PN ---
Progress Note (short form) - Note Progress Note: Subjective: The patient was seen and examined at the bedside, he states he is feeling good. Current Medications Generic Name Dose Route Start Last Admin Trade Name Amari PRN Reason Stop Dose Admin Sodium Chloride 1,000 mls @ 150 mls/hr 06/15/17 14:44 06/16/17 09:10 Normal Saline - IV 150 mls/hr ASDIR SHAHIDA Administration Objective: Vital Signs Period Temp Pulse Resp BP Sys/Gleason Pulse Ox Last 24 Hr 98.1 F-99.5 F 50-55 20-20 136-148/78-90 100 Physical Exam: General: NAD, A&OX3 Lungs: CTA bilaterally Heart: RRR, S1S2 Abd: Soft, non-tender, non-distended. Normoactive bowel sounds Ext: Warm, well-perfused. 2+ DP/PT bilaterally Neuro: CN 2-12 intact CBCD WBC 6.3 K/mm3 (4.0-10.0) 06/12/17 07:00 RBC 4.13 M/mm3 (4.00-5.60) 06/12/17 07:00 Hgb 11.9 GM/dL (11.7-16.9) 06/12/17 07:00 Hct 35.4 % (35.4-49) 06/12/17 07:00 MCV 85.8 fl (80-96) 06/12/17 07:00 MCHC 33.7 g/dl (32.0-35.9) 06/12/17 07:00 RDW 14.3 % (11.9-15.9) 06/12/17 07:00 Plt Count 169 K/MM3 (134-434) 06/12/17 07:00 MPV 9.5 fl (7.5-11.1) 06/12/17 07:00 CMP Sodium 143 mmol/L (136-145) 06/16/17 06:10 Potassium 3.8 mmol/L (3.5-5.1) 06/16/17 06:10 Chloride 108 mmol/L (98-107) H 06/16/17 06:10 Carbon Dioxide 29 mmol/L (21-32) 06/16/17 06:10 Anion Gap 6 (8-16) L 06/16/17 06:10 BUN 9 mg/dL (7-18) 06/16/17 06:10 Creatinine 0.8 mg/dL (0.7-1.3) 06/16/17 06:10 Creat Clearance w eGFR > 60 (>60) 06/16/17 06:10 Random Glucose 77 mg/dL (74-106) 06/16/17 06:10 Calcium 8.7 mg/dL (8.5-10.1) 06/16/17 06:10 Total Bilirubin 0.5 mg/dL (0.2-1.0) D 06/16/17 06:10 AST 209 U/L (15-37) H D 06/16/17 06:10 ALT 206 U/L (12-78) H D 06/16/17 06:10 Alkaline Phosphatase 55 U/L (45-117) 06/16/17 06:10 Total Protein 5.6 g/dl (6.4-8.2) L 06/16/17 06:10 Albumin 3.1 g/dl (3.4-5.0) L 06/16/17 06:10 CARDIAC ENZYMES Creatine Kinase 5797 IU/L (39-308) H 06/16/17 06:10 Troponin I 0.05 ng/ml (0.00-0.05) 06/14/17 21:15 Laboratory Tests 06/12/17 06/12/17 06/13/17 07:00 16:45 06:00 Creatine Kinase 86222 H D 39983 H 10849 H 06/13/17 06/14/17 06/14/17 19:05 06:30 14:50 Creatine Kinase 74139 H 56300 H 57633 H 06/15/17 06/16/17 05:55 06:10 Creatine Kinase 45079 H 5797 H This is a 36 year old male with no significant PMHx who presented to the ED with rhabdomyolysis. Plan: 1) MSK: Rhabdomyolysis - Improving - Continue IV fluids at current rate - Continue to monitor kidney function 2) GI: Transaminitis - May be 2/2 rhabdo - Improving - Hepatitis panel reviewed - Avoid hepatotoxic agents Polyp of gallbladder - Will need follow-up ultrasound in 6 months 3) Cardiology: Elevated troponin - EKG unchanged from previous - Trops flat 0.05 - ECHO reviewed - Appreciate cardiology consult 4) F/E/N: - Monitor electrolytes - Regular diet 5) Prophylaxis: - OOB ambulating - SCDs bilaterally 6) Dispo: - Once condition improves CODE STATUS: FULL CODE Problem List - Problems (1) Rhabdomyolysis Code(s): M62.82 - RHABDOMYOLYSIS Qualifiers: Rhabdomyolysis type: non-traumatic Qualified Code(s): M62.82 - Rhabdomyolysis (2) Transaminitis Code(s): R74.0 - NONSPEC ELEV OF LEVELS OF TRANSAMNS & LACTIC ACID DEHYDRGNSE Visit type - Emergency Visit Emergency Visit: Yes ED Registration Date: 06/11/17 Care time: The patient presented to the Emergency Department on the above date and was hospitalized for further evaluation of their emergent condition. - New Patient This patient is new to me today: No - Critical Care Critical Care patient: No
--- NOTE | 2017-06-16 14:48 | PN ---
Progress Note, Physician Chief Complaint: Events noted Feeling better Less thigh pain History of Present Illness: Patient was seen and examined. Awake and alert. Chart was reviewed Denies chest pain, SOB or palpitations CPK down to 5797 - Current Medication List Current Medications: Active Medications Sodium Chloride (Normal Saline -) 1,000 mls @ 150 mls/hr IV ASDIR SHAHIDA Last Admin: 06/16/17 09:10 Dose: 150 mls/hr - Objective Vital Signs: Vital Signs Temperature 98.3 F 06/16/17 13:33 Pulse Rate 54 L 06/16/17 13:33 Respiratory Rate 20 06/16/17 10:00 Blood Pressure 140/77 06/16/17 13:33 O2 Sat by Pulse Oximetry (%) 100 06/15/17 20:08 HENT: Yes: Atraumatic Neck: Yes: Supple Cardiovascular: Yes: Regular Rate and Rhythm, S1, S2. No: Murmur Respiratory: Yes: CTA Bilaterally Gastrointestinal: Yes: Normal Bowel Sounds, Soft. No: Tenderness Edema: No Labs: CBC, BMP 06/12/17 07:00 06/16/17 06:10 Laboratory Results - last 24 hr 06/16/17 06:10 Sodium 143 Potassium 3.8 Chloride 108 H Carbon Dioxide 29 Anion Gap 6 L BUN 9 Creatinine 0.8 Creat Clearance w eGFR > 60 Random Glucose 77 Calcium 8.7 Total Bilirubin 0.5 D AST 209 H D ALT 206 H D Alkaline Phosphatase 55 Creatine Kinase 5797 H Creatine Kinase Index 0.0 CK-MB (CK-2) 3.294 Total Protein 5.6 L Albumin 3.1 L Problem List - Problems (1) Rhabdomyolysis Code(s): M62.82 - RHABDOMYOLYSIS Qualifiers: Rhabdomyolysis type: non-traumatic Qualified Code(s): M62.82 - Rhabdomyolysis (2) Transaminitis Code(s): R74.0 - NONSPEC ELEV OF LEVELS OF TRANSAMNS & LACTIC ACID DEHYDRGNSE (3) HTN (hypertension) Code(s): I10 - ESSENTIAL (PRIMARY) HYPERTENSION Assessment/Plan 1. Rhabdomyolisis 2. HTN PLAN: 1. Continue hydration and trend CPK. Elevation of troponin is not of significance. 2. Transthoracic echocardiography result was noted Spoke with patient and his father by bedside. Further plans are to follow Alan Pineda MD
[2017-06-17] MEDS: SODIUM CHLORIDE 1,000 ML IV SCH ×3 (05:28→21:32)
--- NOTE | 2017-06-17 17:37 | PN ---
Progress Note, Physician History of Present Illness: Myalgias resolved. - Current Medication List Current Medications: Active Medications Sodium Chloride (Normal Saline -) 1,000 mls @ 150 mls/hr IV ASDIR SHAHIDA Last Admin: 06/17/17 12:37 Dose: 150 mls/hr - Objective Vital Signs: Vital Signs Temperature 98.2 F 06/17/17 14:31 Pulse Rate 54 L 06/17/17 14:31 Respiratory Rate 20 06/17/17 09:47 Blood Pressure 153/92 06/17/17 14:31 O2 Sat by Pulse Oximetry (%) 100 06/17/17 09:00 Constitutional: Yes: No Distress, Calm Neck: Yes: Supple Cardiovascular: Yes: Regular Rate and Rhythm Respiratory: Yes: Regular, CTA Bilaterally Gastrointestinal: Yes: Normal Bowel Sounds, Soft Edema: No Labs: CBC, BMP 06/12/17 07:00 06/16/17 06:10 Problem List - Problems (1) Rhabdomyolysis Code(s): M62.82 - RHABDOMYOLYSIS Qualifiers: Rhabdomyolysis type: non-traumatic Qualified Code(s): M62.82 - Rhabdomyolysis (2) Transaminitis Code(s): R74.0 - NONSPEC ELEV OF LEVELS OF TRANSAMNS & LACTIC ACID DEHYDRGNSE Assessment/Plan 06/15/2017 Normal biventricular size and fxn without sig valve abnl 1. Rhabdomyolysis improving 2. Abnormal LFTs PLAN: 1. Continue hydration and trend CPK and LFTs which have peaked 2. D/c planning
--- NOTE | 2017-06-17 18:00 | PN ---
Physical Exam: SUBJECTIVE: Patient seen and examined. He has no complaints CPK is down trending Events: - urine clear - CPK 3418 - Afebrile OBJECTIVE: Vital Signs Period Temp Pulse Resp BP Sys/Gleason Pulse Ox Last 24 Hr 98.2 F-98.5 F 42-57 20-20 125-155/53-92 100-100 Pe Neuro: alert,awake, cn 2-12intact Pulm: CTAB CV: s1 s2 rrr no mrg Abd: s nt nd + bs Ext: Warm, no le edema Laboratory Results - last 24 hr 06/17/17 06:30 Creatine Kinase 3418 H Creatine Kinase Index 0.1 CK-MB (CK-2) 5.925 H Active Medications Generic Name Dose Route Start Last Admin Trade Name Freq PRN Reason Stop Dose Admin Sodium Chloride 1,000 mls @ 150 mls/hr 06/15/17 14:44 06/17/17 12:37 Normal Saline - IV 150 mls/hr ASDIR SHAHIDA Administration Imaging: - ECHO 06/15: Normal biventricular size and fxn without sig valve abnl Assessment: 36 year old male with no significant PMHx who presented to the ED with rhabdomyolysis. Plan: 1. Rhabdomyolysis - Improving - Decrease fluids 100cc/hr for elevated BP - Check CPK in am 2. Transaminitis - May be 2/2 rhabdo; improved - Avoid hepatotoxic agents 3. Polyp of gallbladder - Will need follow-up ultrasound in 6 months 4. Elevated troponin - EKG unchanged from previous - Trops flat 0.05 - No further cardiac interventions 5. HTN - If remains elevated start [facility] Dispo: - Pending CPK, Dc home tomorrow CODE STATUS: FULL CODE Visit type - Emergency Visit Emergency Visit: Yes ED Registration Date: 06/11/17 Care time: The patient presented to the Emergency Department on the above date and was hospitalized for further evaluation of their emergent condition. - New Patient This patient is new to me today: No - Critical Care Critical Care patient: No
[2017-06-18] MEDS: SODIUM CHLORIDE 1,000 ML IV SCH ×3 (05:50→20:50)
--- NOTE | 2017-06-18 11:57 | PN ---
Progress Note, Physician History of Present Illness: Myalgias resolved. - Current Medication List Current Medications: Active Medications Sodium Chloride (Normal Saline -) 1,000 mls @ 100 mls/hr IV ASDIR SHAHIDA Last Admin: 06/18/17 05:50 Dose: 100 mls/hr - Objective Vital Signs: Vital Signs Temperature 98.4 F 06/18/17 08:18 Pulse Rate 47 L 06/18/17 08:18 Respiratory Rate 18 06/18/17 08:18 Blood Pressure 152/90 06/18/17 08:18 O2 Sat by Pulse Oximetry (%) 100 06/18/17 08:50 Constitutional: Yes: No Distress, Calm Neck: Yes: Supple Cardiovascular: Yes: Regular Rate and Rhythm Respiratory: Yes: Regular, CTA Bilaterally Gastrointestinal: Yes: Normal Bowel Sounds, Soft Edema: No Labs: CBC, BMP 06/12/17 07:00 06/16/17 06:10 Problem List - Problems (1) Rhabdomyolysis Code(s): M62.82 - RHABDOMYOLYSIS Qualifiers: Rhabdomyolysis type: non-traumatic Qualified Code(s): M62.82 - Rhabdomyolysis (2) Transaminitis Code(s): R74.0 - NONSPEC ELEV OF LEVELS OF TRANSAMNS & LACTIC ACID DEHYDRGNSE (3) HTN (hypertension) Code(s): I10 - ESSENTIAL (PRIMARY) HYPERTENSION Qualifiers: Hypertension type: essential hypertension Qualified Code(s): I10 - Essential (primary) hypertension Assessment/Plan 06/15/2017 Normal biventricular size and fxn without sig valve abnl 1. Rhabdomyolysis improving 2. Abnormal LFTs 3. HTN suspect PLAN: 1. Continue hydration and trend CPK and LFTs which have peaked 2. D/c planning, ambulatory BP monitor as outpatient
--- NOTE | 2017-06-18 15:01 | PN ---
Physical Exam: SUBJECTIVE: Patient seen and examined. He is frustrated his CPK is not discharge ready, but he understands OBJECTIVE: Vital Signs Period Temp Pulse Resp BP Sys/Gleason Pulse Ox Last 24 Hr 97.8 F-98.4 F 47-80 18-20 130-152/69-90 100-100 Pe Neuro: alert,awake, cn 2-12intact Pulm: CTAB CV: s1 s2 rrr no mrg Abd: s nt nd + bs Ext: Warm, no le edema Laboratory Results - last 24 hr 06/18/17 06:30 Creatine Kinase 2307 H Creatine Kinase Index 0.2 CK-MB (CK-2) 6.402 H Imaging: - ECHO 06/15: Normal biventricular size and fxn without sig valve abnl Assessment: 36 year old male with no significant PMHx who presented to the ED with rhabdomyolysis. Plan: 1. Rhabdomyolysis - CPK down trending - Increase fluids 200cc/hr - Check CPK in am 2. Transaminitis - May be 2/2 rhabdo; improved - Avoid hepatotoxic agents 3. Polyp of gallbladder - Will need follow-up ultrasound in 6 months 4. Elevated troponin - EKG unchanged from previous - Trops flat 0.05 - No further cardiac interventions 5. HTN - Likely due to fluids, monitor as outpt Dispo: - Pending CPK, DC home tomorrow CODE STATUS: FULL CODE Visit type - Emergency Visit Emergency Visit: Yes ED Registration Date: 06/11/17 Care time: The patient presented to the Emergency Department on the above date and was hospitalized for further evaluation of their emergent condition. - New Patient This patient is new to me today: No - Critical Care Critical Care patient: No
[2017-06-19] MEDS: SODIUM CHLORIDE 1,000 ML IV SCH ×2 (01:37→06:27)
[2017-06-19 07:56] VITALS: BP 139/78; PULSE 47; TEMP 98.5
--- NOTE | 2017-06-19 10:08 | DS ---
Physical Exam: SUBJECTIVE: Patient seen and examined OBJECTIVE: Vital Signs Period Temp Pulse Resp BP Sys/Gleason Pulse Ox Last 24 Hr 97.6 F-98.5 F 47-53 18-20 139-150/78-90 100 PHYSICAL EXAM GENERAL: The patient is awake, alert, and fully oriented, in no acute distress. HEAD: Normal with no signs of trauma. EYES: PERRL, extraocular movements intact, sclera anicteric, conjunctiva clear. ENT: Ears normal, nares patent, oropharynx clear without exudates, moist mucous membranes. NECK: Trachea midline, full range of motion, supple. LUNGS: Breath sounds equal, clear to auscultation bilaterally, no wheezes, no crackles, no accessory muscle use. HEART: Regular rate and rhythm, S1, S2 without murmur, rub or gallop. ABDOMEN: Soft, nontender, nondistended, normoactive bowel sounds, no guarding, no rebound, no hepatosplenomegaly, no masses. EXTREMITIES: 2+ pulses, warm, well-perfused, no edema. NEUROLOGICAL: Cranial nerves II through XII grossly intact. Normal speech, gait not observed. PSYCH: Normal mood, normal affect. SKIN: Warm, dry, normal turgor, no rashes or lesions noted. LABS Laboratory Results - last 24 hr 06/19/17 05:35 Creatine Kinase 1414 H Creatine Kinase Index 0.5 CK-MB (CK-2) 7.260 H HOSPITAL COURSE: Date of Admission:06/11/17 Date of Discharge: 06/19/17 Minutes to complete discharge: 38 Discharge Summary Reason For Visit: RHABDOMYOLYSIS Current Active Problems HTN (hypertension) (Acute) Polyp of gallbladder (Acute) Rhabdomyolysis (Acute) Transaminitis (Acute) Hospital Course: Initial Hospital Course: Briefly, this 36 year old AA athletic male with no significant PMH c/o left thigh pain and dark urine. He reported having left upper thigh pain that started about 2 weeks ago after playing basketball, thinking it was a sore, it got better on its own. He started to lift weights and playing basketball every day, and on the day of admissio his urine was tea colored. He reports he does not drink water with his work outs or usually much at all. He denies steroid use , he is no longer an alcohol drinker. Imaging: - ECHO 06/15: Normal biventricular size and fxn without sig valve abnl Subsequent Hospital Course/Progress Note/Discharge Summary by a/p: Assessment: 36 year old male with no significant PMHx who presented to the ED with rhabdomyolysis. Plan: 1. Rhabdomyolysis - CPK 1414 on discharge, peaked [id number] - Home with liberal PO intake - Thursday follow up with PCP Dr. Padmini lopes for repeat CPK levels, pt aware and agrees 2. Transaminitis - May be 2/2 rhabdo; improved - Avoid hepatotoxic agents 3. Polyp of gallbladder - Will need follow-up ultrasound in 6 months 4. Elevated troponin - TSH wnl - EKG unchanged from previous - Trops flat 0.05 - d.w cardiology CK MB rise, no need for further intervention at this time - No further cardiac interventions 5. HTN - Likely due to fluids, monitor as outpt Dispo: - Home with pcp follow up thursday for cpk levels, counseled pt to drink water liberally before during and after work outs - Pt aware and agrees to above plan Condition: Stable - Instructions Diet, Activity, Other Instructions: Please return to the ED for any new, persistent, or worsening symptoms. Follow up with your PCP on Thursday for repeat CPK levels Continue to drink plenty of fluids Follow up in 6 months for ultra sound of gallbladder to evaluate polyp Avoid tylenol and any other agents toxic to your liver Referrals: Miguel Serrano MD [Staff Physician] - Padmini Lopes MD [Staff Physician] - 06/22/17 (Follow up on Thursday for repeat CPK and CMP levels Repeat US of gallbladder in 6 months re eval polyp ) Disposition: HOME - Home Medications Comprehensive Discharge Medication List: Ambulatory Orders NK [No Known Home Medication] 06/11/17 This patient is new to me today: No Emergency Visit: Yes ED Registration Date: 06/11/17 Care time: The patient presented to the Emergency Department on the above date and was hospitalized for further evaluation of their emergent condition. Critical Care patient: No - Discharge Referral Referred to [facility] No
== END 2017-06-19 12:38 | disposition home or self-care (01) | DRG 351 ==
LOC: JERFT 21:09 → UNDOADMOB 06-11 05:37 → INTOOBSV 06-11 05:37 → JERBED 06-11 05:37 → UNDOADMIN 06-11 05:59 → JERBED 06-11 05:59 → OBSVTOIN 06-11 06:50 → J6S 06-11 09:34
PROVIDERS: ADMIT Internal Medicine; ATTEND Nurse Practitioner Acute Care
DX: M62.82 Rhabdomyolysis (principal); R74.0 Nonspecific elevation of levels of transaminase and lactic acid dehydrogenase [LDH]; I10 Essential (primary) hypertension; K82.4 Cholesterolosis of gallbladder; M79.652 Pain in left thigh
CPT/HCPCS: 36415; 76700-TC; 80053; 80074; 81003; 81015; 82550; 82553; 84443; 84484; 85025; 85027; 86704; 86706; 86708; 87086; 87340; 93005; 93010; 93306-TC; 99282-25

== ENCOUNTER 2020-07-29 13:24 | Emergency (ER) | payer BC, OTHER ==
[2020-07-29 13:42] VITALS: BP 128/77; PULSE 66; TEMP 98.7; BMI 25.3
[2020-07-29] MEDS ORDERED: AMOX TR/POT CLAV 875MG/125MG TABLETS (FP) PO ONE (15:35)
[2020-07-29] MEDS ORDERED: DIPHTH,PERTUSS(ACELL),TET 0.5 ML DISP.SYRIN IM ONE ×2 (15:35→16:11)
--- NOTE | 2020-07-29 15:46 | PDOC ---
History of Present Illness - General Chief Complaint: Injury Stated Complaint: LEG LAC. Time Seen by Provider: 07/29/20 13:46 History Source: Patient Exam Limitations: No Limitations - History of Present Illness Initial Comments: 07/29/20 13:46 Patient is a 39-year-old male with no past medical history presents to the ED with bilateral leg lacerations after falling while jumping over an iron fence. He states he was playing basketball with his nephew when the ball went over the fence. He jumped over the fence to retrieve the ball and while jumping back over tripped scraping his legs on the peaks of the fence. He immediately noticed multiple lacerations to his bilateral lower legs. He is unsure of his last tetanus booster. He states he is allergic to sulfa medications. Past History - Medical History Allergies/Adverse Reactions: Allergies Allergy/AdvReac Type Severity Reaction Status Date / Time Sulfa (Sulfonamide Allergy Verified 07/29/20 13:42 Antibiotics) Home Medications: Ambulatory Orders Amoxicillin/Potassium Clav [Augmentin 875-125 Tablet] 1 each PO BID 10 Days #20 tablet 07/29/20 COPD: No - Immunization History Immunization Up to Date: No - Psycho-Social/Smoking History Smoking History: Never smoked - Substance Abuse Hx (Audit-C & DAST Scrn) How often the patient has a drink containing alcohol: Never Score: In Men: 4 or > Positive; In Women: 3 or > Positive: 0 Screen Result (Pos requires Nsg. Audit-10AR): Negative Review of Systems - Review of Systems Comments:: 07/29/20 15:57 - Review of Systems Able to Perform ROS?: Yes Constitutional: No: Fever, Chills, Loss of Appetite, Night Sweats, Weakness HEENTM: No: Eye Pain, Vision changes, Ear Pain, Throat Pain, Throat Swelling, Mouth Pain, Difficulty Swallowing Respiratory: No: Cough, Shortness of Breath, Wheezing, Sputum Production Cardiac (ROS): No: Chest Pain, Chest Tightness, Palpitations, Irregular Heart Beat, Edema ABD/GI: No: Nausea, Vomiting, Abdominal Pain, Diarrhea : No Dysuria, No Hematuria, No Frequency, No Urgency Musculoskeletal: No: Muscle Pain, Back Pain, Joint Pain, Muscle Weakness, Neck Pain Integumentary: No: Lesions, Rash; positive: Bilateral lower leg lacerations Neurological: No: Headache, Numbness, Tingling, Weakness, Speech Difficulties *Physical Exam - Vital Signs Last Vital Signs Temp Pulse Resp BP Pulse Ox 98.7 F 66 18 128/77 100 07/29/20 13:38 07/29/20 13:38 07/29/20 13:38 07/29/20 13:38 07/29/20 13:38 - Physical Exam 07/29/20 15:57 - Physical Exam General Appearance: Nourished, Appropriately Dressed, No Distress HEENT: EOMI, Normal Voice, Hearing Grossly Normal Neck: Supple, No Lymphadenopathy (R), No Lymphadenopathy (L), No Rigidity, No Decreased range of motion Respiratory/Chest: Lungs Clear, Normal Breath Sounds. No Respiratory Distress, No Accessory Muscle Use Cardiovascular: Regular Rhythm, Regular Rate, S1, S2 Musculoskeletal: Normal Inspection. No Decreased Range of Motion Extremity: Normal Capillary Refill, Normal Inspection Integumentary: Normal Color, Dry. No Rash; 5 lacerations appreciated to the b/l lower extremities. 2 of the lacerations are flap lacerations on the bilateral distal aspects of the lower legs that are both gaping. Bone visualized without any bony involvement appreciated. Full range of motion of the foot and ankle appreciated. 2 lacerations are linear in nature 1 on the proximal aspect of the left lower leg and the other on the right distal lateral aspect of the right leg over the ankle. There is a laceration to the mid lower leg on the left with a braised and contused tissue surrounding it. The center of that laceration is slightly gaping. No sign of foreign bodies on any of the lacerations. Abrasions appreciated to the bilateral proximal aspect of the lower legs. Neurologic: cytogenetic technician II-XII NML intact, Fully Oriented, Alert, Normal Mood/Affect, Normal Response Procedures - Laceration/Wound Repair Both Lower Anterior Lateral Calf Wound Length: 12.6 to 20 cm Wound Explored: clean, no foreign body present Wound's Depth, Shape: superficial, irregular, flap, contused tissue Irrigated w/ Saline: Yes Betadine Prep: Yes Anesthesia: 1% Lidocaine Amount of Anesthetic (ccs): 9 Wound Debrided: minimal Wound Repaired With: Sutures Suture Size/Type: 4:0, 3:0, nylon Number of Sutures: 29 Layer Closure: No Sterile Dressing Applied: Yes Splint Applied: No Progress: 07/29/20 15:46 5 separate wounds sutured with a total of 29 sutures. Right leg: proximal wound has 11 sutures, distal lateral wound has 3 sutures Left leg: Proximal wound has 5 sutures, middle wound has 3 sutures, distal wound has 7 sutures Medical Decision Making - Medical Decision Making 07/29/20 15:48 Assessment: Patient is a 39-year-old male with bilateral lower extremity lacerations after falling over a right iron fence. Plan: -Suture repair on 5 wounds totaling 20 9 sutures -Tetanus booster given -Augmentin p.o. first dose given in the ED, remainder sent to the patient's pharmacy -Patient given wound care instructions -Patient to return to the ED in 7 to 10 days for suture removal -He understands and agrees with this treatment plan and he is stable for discharge Discharge - Discharge Information Problems reviewed: Yes Clinical Impression/Diagnosis: Laceration of left lower leg without complication Laceration of lower leg without complication Qualifiers: Encounter type: initial encounter Laterality: right Qualified Code(s): S81.811A - Laceration without foreign body, right lower leg, initial encounter Condition: Stable Disposition: HOME - Additional Discharge Information Prescriptions: Amoxicillin/Potassium Clav [Augmentin 875-125 Tablet] 1 each PO BID 10 Days #20 tablet - Follow up/Referral - Patient Discharge Instructions Patient Printed Discharge Instructions: DI for Laceration Repair Additional Instructions: Keep the wound clean and dry for 24 hours. After 24 hours you can wash the wounds daily with warm water and soap. Allow the wounds to dry for at least 30 minutes before covering. You can keep the wounds uncovered while at home but you should cover them if away from home. Take the antibiotics as prescribed and complete the entire course. You were given a tetanus booster in the emergency department today. Return to the emergency department in 7 to 10 days to have the sutures removed. - Post Discharge Activity
[2020-07-29] MEDS ORDERED: AMOX TR/POT CLAV 875MG/125MG TABLETS (FP) ONE (16:12)
== END 2020-07-29 16:21 | disposition home or self-care (01) ==
LOC: JERFT 13:24
PROC: 0YQJXZZ Repair Left Lower Leg, External Approach (ICD-10-PCS; principal; 2020-07-29)
PROC: 0YQHXZZ Repair Right Lower Leg, External Approach (ICD-10-PCS; 2020-07-29)
PROC: 3E0234Z Introduction of Serum, Toxoid and Vaccine into Muscle, Percutaneous Approach (ICD-10-PCS; 2020-07-29)
DX: S81.811A Laceration without foreign body, right lower leg, initial encounter (principal); S81.812A Laceration without foreign body, left lower leg, initial encounter
CPT/HCPCS: 90715; 99284-25

== ENCOUNTER 2020-08-08 11:46 | Emergency (ER) | payer BC ==
[2020-08-08 11:50] VITALS: BP 130/77; PULSE 77; TEMP 98.2; BMI 25.3
--- NOTE | 2020-08-08 12:33 | PDOC ---
Suture Removal/Wound Check HPI - History of Present Illness Chief Complaint: Suture/Staple Removal(Here) Stated Complaint: STITCH REMOVAL History Source: Yes: Patient Exam Limitations: Yes: No Limitations - Onset of Previous Treatment Comment:: 08/08/20 12:32 Patient is a 45-year-old male with no past medical history here with complaints of suture removal applied 10 days ago. Has no issues of discharge from the wound, redness he has been on antibiotics for past 10 days. PMHX: Dr. Aponte PMHX: as above PSOCHX: neg ALL: sulfa GENERAL/CONSTITUTIONAL: [No fever or chills. No weakness. No weight change.] HEAD, EYES, EARS, NOSE AND THROAT: [No change in vision. No ear pain or discharge. No sore throat.] MUSCULOSKELETAL: [No joint or muscle swelling or pain. No neck or back pain.] SKIN AND BREASTS: [No rash or easy bruising.] NEUROLOGIC: [No headache, vertigo, loss of consciousness, or loss of sensation.] ENDOCRINE: [No increased thirst. No abnormal weight change.] HEMATOLOGIC/LYMPHATIC: [No anemia, easy bleeding, or history of blood clots.] ALLERGIC/IMMUNOLOGIC: [No hives or skin allergy. No latex allergy.] GENERAL: [The patient is awake, alert, and fully oriented, in no acute distress. ] HEAD: [Normal with no signs of trauma.] EYES: [Pupils equal, round and reactive to light, extraocular movements intact, sclera anicteric, conjunctiva clear.] EXTREMITIES: [Normal range of motion, no edema. No clubbing or cyanosis. No cords, erythema, or tenderness.] NEUROLOGICAL: [Cranial nerves II through XII grossly intact. Normal speech, normal gait.] SKIN: [multiple sutures on b/l lower ext, sutures intact wounds are clean no discharge, no erythema] Past History - Medical History Allergies/Adverse Reactions: Allergies Allergy/AdvReac Type Severity Reaction Status Date / Time Sulfa (Sulfonamide Allergy Verified 08/08/20 12:17 Antibiotics) Home Medications: Ambulatory Orders Amoxicillin/Potassium Clav [Augmentin 875-125 Tablet] 1 each PO BID 10 Days #20 tablet 07/29/20 COPD: No - Immunization History Immunization Up to Date: No - Psycho-Social/Smoking History Smoking History: Never smoked Have you smoked in the past 12 months: No Information on smoking cessation initiated: No - Substance Abuse Hx (Audit-C & DAST Scrn) How often the patient has a drink containing alcohol: Never Score: In Men: 4 or > Positive; In Women: 3 or > Positive: 0 Screen Result (Pos requires Nsg. Audit-10AR): Negative In the last yr the pt used illegal drug/Rx for NonMed reason: No Score: Yes response is considered Positive: 0 Screen Result (Positive result requires Nsg. DAST-10): Negative *Physical Exam - Vital Signs Last Vital Signs Temp Pulse Resp BP Pulse Ox 98.2 F 77 18 130/77 99 08/08/20 11:47 08/08/20 11:47 08/08/20 11:47 08/08/20 11:47 08/08/20 11:47 Medical Decision Making - Medical Decision Making 08/08/20 12:32 Patient is a 45-year-old male with no past medical history here with complaints of suture removal applied 10 days ago. Has no issues of discharge from the wound, redness he has been on antibiotics for past 10 days. Patient here for wound check and suture removal. Right leg distally sutures removed slight opening to the proximal edge of the wound. Wound was cleaned and Steri-Strips applied. I discussed the physical exam findings, ancillary test results and final diagnoses with the patient. I answered all of the patient's questions. The patient was satisfied with the care received and felt comfortable with the discharge plan and treatment plan. The Patient agrees to follow up with the primary care physician within 24-72 hours. Discharge - Discharge Information Problems reviewed: Yes Clinical Impression/Diagnosis: Encounter for removal of sutures Condition: Stable Disposition: HOME - Follow up/Referral - Patient Discharge Instructions Patient Printed Discharge Instructions: DI for Suture Removal Additional Instructions: Your Discharge Instructions: You must call primary care physician within 24 hours to arrange follow-up. Return to the Emergency Department with any new, persistent or worsening symptoms, for fever, chills, SOB, dizziness or any other concerning changes that may occur. We have applied strips to the right distal suture. Just wash with soap and water the strips will drop off over the next few days. Watch for signs of infection. - Post Discharge Activity
== END 2020-08-08 12:38 | disposition home or self-care (01) ==
LOC: JERFT 11:46
DX: Z48.02 Encounter for removal of sutures (principal)
CPT/HCPCS: 99281-25